=== PATIENT | female | born 1970 | race Caucasian/White ===

== ENCOUNTER → 2018-05-27 | Outpatient (CLI) | payer OTHER ==
--- NOTE | 2018-05-28 10:49 | KCIC ---
MR of the right knee Indication: Right knee pain, progressing over several months. Technique: The standard multiplanar sequences are obtained. FINDINGS: Artifact: No significant image degradation. Medial meniscus: Severe degenerative tear. Lateral meniscus: Intact. Anterior cruciate ligament: Intact Posterior cruciate ligament: Intact Medial collateral ligament: Proximal sprain. Lateral structures: * Iliotibial band: Intact. * Lateral collateral ligament: Intact. * Biceps femoris tendon: Intact * Popliteus tendon attachment: Intact Extensive mechanism: * Patellar tendon: Intact * Quadriceps tendon: Intact * Retinacular structures: Intact Fluid: Small joint effusion. Small Melton's cyst. Intra-articular bodies: None visualized Joint compartments * patellofemoral joint: Moderate chondromalacia. * medial compartment: Severe chondromalacia. * lateral compartment: Mild chondromalacia. Bones: No significant lesion or acute fracture. Soft tissue: Unremarkable Impression: 1. Medial meniscal tear. 2. Proximal medial collateral ligament sprain. 3. Primary osteoarthritis. Electronically signed by: Chito Payne MD (05/28/2018 10:45 AM) [facility]
== END | disposition home or self-care (01) ==
LOC: KCIC MRI 17:28
DX: S83.241A Other tear of medial meniscus, current injury, right knee, initial encounter (principal); S83.411A Sprain of medial collateral ligament of right knee, initial encounter; M17.11 Unilateral primary osteoarthritis, right knee; M94.261 Chondromalacia, right knee; M71.21 Synovial cyst of popliteal space [Baker], right knee; M25.461 Effusion, right knee; X58.XXXA Exposure to other specified factors, initial encounter; Y93.89 Activity, other specified; Y92.89 Other specified places as the place of occurrence of the external cause; Y99.8 Other external cause status
CPT/HCPCS: 73721

== ENCOUNTER 2018-07-20 06:17 | Day surgery (SDC) | payer OTHER ==
[~2018-07-20] VITALS: Ht 167.6 cm; Wt 146.1 kg
[~2018-07-20 06:17] MED LIST: ASCO500C9 PO; CHOL2000 PO; CLON1TAB PO; LEVO150T5 PO; NAPR220C4 PO; SERT50TA PO; SUMA100T3 PO; VITA1CAP PO; ceFAZolin SODIUM 3 GM in IV DEXTROSE 5% 100ML 100 ML IV PRN
[2018-07-20] MEDS ORDERED: PROCHLORPERAZINE 10 MG/2 ML VIAL. IV PRN (07:00)
[2018-07-20] MEDS ORDERED: fentaNYL PF VIAL 100 MCG/2 ML VIAL IV PRN (07:00)
[2018-07-20] MEDS ORDERED: ONDANSETRON PF 4 MG/2 ML VIAL. IV PRN (07:00)
[2018-07-20] MEDS ORDERED: LIDOCAINE 1% PF 2 ML VIAL. ID PRN (07:00)
[2018-07-20] MEDS ORDERED: IV RINGERS,LACTATED 1000ML 1,000 ML IV SCH (07:00)
[2018-07-20] MEDS ORDERED: HYDROmorphone 2 MG/ML VIAL IV PRN (07:00)
[2018-07-20] MEDS ORDERED: BUPIVAC MPF-EPI 0.5%-1:200000 30 ML VIAL. ONE (07:01)
[2018-07-20] MEDS ORDERED: SUCCINYLCHOLINE 200 MG/10 ML VIAL. ONE (07:03)
[2018-07-20] MEDS ORDERED: PROPOFOL 20 ML IV ONE ×2 (07:03→07:43)
[2018-07-20] MEDS ORDERED: LIDOCAINE 1% PF 5 ML VIAL. ONE (07:03)
[2018-07-20] MEDS ORDERED: fentaNYL PF VIAL 100 MCG/2 ML VIAL ONE ×2 (07:03→08:24)
[2018-07-20] MEDS ORDERED: FAMOTIDINE 20 MG/2 ML VIAL ONE (07:03)
[2018-07-20] MEDS ORDERED: ONDANSETRON PF 4 MG/2 ML VIAL. ONE (07:03)
[2018-07-20] MEDS ORDERED: DEXAMETHASONE SOD PHOS 20 MG/5 ML VIAL. ONE (07:03)
--- NOTE | 2018-07-20 07:39 | PREOP HP ---
DATE OF SERVICE: 07/20/2018 CHIEF COMPLAINT: Right knee pain. HISTORY OF PRESENT ILLNESS: The patient has had a few months of sharp stabbing right knee pain, increasing in duration, worse with pivoting and twisting, severely affecting her activities of daily living. MRI had shown a posterior horn medial meniscus tear. PAST MEDICAL HISTORY: Breast cancer. PAST SURGICAL HISTORY: Bilateral mastectomies, hysterectomy, oophorectomy and a previous ACL repair. FAMILY HISTORY: COPD. SOCIAL HISTORY: Denies smoking. Occasional alcohol use. Denies drug use. MEDICATIONS: List is reviewed. ALLERGIES: She has no known drug allergies. REVIEW OF SYSTEMS: Denies any fever, chills, chest pain, shortness of breath, constitutional symptoms or other problems. PHYSICAL EXAMINATION: VITAL SIGNS: Per admission sheet. HEENT: Atraumatic, normocephalic. HEART: Regular rate and rhythm. LUNGS: Clear to auscultation bilaterally. ABDOMEN: Benign. EXTREMITIES: On examination, she has medial joint line tenderness, exacerbated by Sherif testing on the right knee. Good ligament stability bilaterally. Normal alignment, stability of bilateral hips and ankles. IMAGING: MRI shows a tear of the posterior horn of the medial meniscus. IMPRESSION: Medial meniscus tear, right knee. TREATMENT PLAN: At this point, she is very limited once definitive treatment. We have discussed structure and function of the meniscus, operative rationale, the fact that I cannot undo any degenerative changes present, only the mechanical aspect of the meniscus itself, possibility of infection, nerve or blood vessel damage, continued pain, medical or other anesthetic complications. She wishes to proceed with surgical evaluation and treatment, which will proceed today. AKUA CARR MD DR: AZALIA/rudi JOB#: [id number] / [id number]
[2018-07-20] MEDS ORDERED: DESFLURANE 31 TO 60 MINUTES IH ONE (08:16)
[2018-07-20] MEDS: fentaNYL PF VIAL 100 MCG/2 ML VIAL IV PRN ×2 (08:28→08:39)
--- NOTE | 2018-07-20 08:28 | DISCH ---
DISCHARGE INSTRUCTIONS Condition on Discharge Condition on Discharge: Stable Activity After Discharge Activity Instructions for Disc: Other, see below (May advance activities as tolerated symptomatically) Weight Bearing Status after Di: As tolerated Diet after Discharge Diet after Discharge: Diabetic No Calorie Level Wound Incision Care Wound/Incision Care: Ice to area for comfort, Change dressing (move dressing in 2 days may then shower) Contacting the DROctaviano after DC Call your doctor for: Concerns you may have Follow-Up Follow up with: Rudy 1 week AKUA CARR MD Jul 20, 2018 08:28
[2018-07-20] MEDS ORDERED: HYDR-3165 PO (08:29)
[2018-07-20] MEDS ORDERED: MORPHINE SULFATE 2 MG/ML VIAL. ONE (08:36)
[2018-07-20] MEDS: MORPHINE SULFATE 2 MG/ML VIAL. IV PRN ×2 (08:40→08:52)
[2018-07-20 08:58] VITALS: BP 121/61
[2018-07-20] MEDS ORDERED: HYDROcodone/APAP 7.5/325MG 1 TAB TABLET ONE (09:10)
[2018-07-20] MEDS ORDERED: HYDROcodone/APAP 7.5/325MG 1 TAB TABLET PO ONE (09:15)
--- NOTE | 2018-07-20 20:11 | PDOC4 ---
Operative Note Operative Note Date of surgery: 07/20/2018 Preoperative diagnosis: Medial meniscus tear Postoperative diagnosis: Same plus free edge lateral meniscus tear and chondral flap tear medial femoral condyle Operative procedure: Right knee arthroscopy partial medial and lateral meniscectomies chondroplasty medial femoral condyle Surgeon: Rudy Anesthesia: Gen. Estimated blood loss: 5 mL Complications: None Operative indications: Jennifer is a 48-year-old female with pain particularly with twisting pivoting in her right knee sharp stabbing in nature and has been increasing as noted in my preoperative history and physical. We had covered risks benefits postoperative course of possible knee arthroscopy the possibility that this wouldn't address the mechanical aspects of the meniscus tear itself but I can't undo degenerative changes or the pain associated with those. All her questions were answered she wishes to proceed with surgical evaluation and treatment Operative text: Patient was identified procedure verified patient placed in the supine position on the operating table. After adequate amounts of general anesthesia were administered a thigh tourniquet was placed in the right lower extremity was prepped and draped in standard sterile fashion. After timeout was performed patient procedure identified and verified right lower extremity was exsanguinated by Esmarch bandage tourniquet inflated to 350 mmHg lateral portal was established a medial portal established using spinal needle localization and the knee joint was systematically examined. She was found to have a displaceable tear of the posterior horn body junction of the medial meniscus which was trimmed back to stable tissue with the arthroscopic punch and tawanna. Lateral meniscus was noted to have free edge tearing which was trimmed back to stable tissue with arthroscopic punch and shaver as well ACL was probed and found to be intact lateral compartment had some chondromalacia not requiring debridement but the medial compartment had a chondral flap tear not full-thickness but was very unstable and trimmed back to stable tissue using arthroscopic shaver. Portals were switched to complete radiusing the medial meniscus anteriorly. She had chondromalacia in the patella and trochlear groove neither of which require debridement no loose bodies noted in the gutters or suprapatellar pouch joint was drained of arthroscopic fluid portals were closed with nylon suture sterile dressings were applied after injection of 20 mL half percent plain Marcaine in the portal and fat pad sites. Patient was returned recovery room in stable condition having tolerated the procedure well AKUA CARR MD Jul 20, 2018 20:11
== END 2018-07-20 09:52 | disposition home or self-care (01) ==
LOC: SURG 06:17
PROVIDERS: ATTEND Orthopaedic Surgery
DX: S83.241A Other tear of medial meniscus, current injury, right knee, initial encounter (principal); S83.281A Other tear of lateral meniscus, current injury, right knee, initial encounter; M22.41 Chondromalacia patellae, right knee; Z85.3 Personal history of malignant neoplasm of breast; Z90.13 Acquired absence of bilateral breasts and nipples; Z90.710 Acquired absence of both cervix and uterus; Z90.721 Acquired absence of ovaries, unilateral; Z98.890 Other specified postprocedural states; Z83.6 Family history of other diseases of the respiratory system; Z72.89 Other problems related to lifestyle; X50.1XXA Overexertion from prolonged static or awkward postures, initial encounter; Y93.89 Activity, other specified; Y92.89 Other specified places as the place of occurrence of the external cause; Y99.8 Other external cause status
CPT/HCPCS: 29880; A7015; C1782; J0330; J1100; J2270; J2405; J2704; J3010; J3490; J7120